=== PATIENT | female | born 1980 | race Caucasian/White ===

== ENCOUNTER 2018-02-06 11:17 | Emergency (ER) | payer SELFPAY ==
[2018-02-06] MEDS ORDERED: cefTRIAXone (Rocephin) 250 mg Inj IM ONE (12:43)
--- NOTE | 2018-02-06 12:48 | ED PDOC ---
HPI: Female Pain Time Seen by Provider: 02/06/18 12:15 Chief Complaint (Nursing): Female Genitourinary Chief Complaint (Provider): Dysuria, Concern for STD History Per: Patient History/Exam Limitations: no limitations Onset/Duration Of Symptoms: Days (x2 weeks) Current Symptoms Are (Timing): Still Present Associated Symptoms: Urinary Symptoms. denies: Fever, Chills, Nausea, Vomiting, Diarrhea, Back Pain Alleviating Factors: None Additional Complaint(s): Patient is a 37 year old female with no past medical history who presents for evaluation of dysuria, yellow vaginal discharge, and urinary frequency x2 weeks. Patient reports she is concerned for both a UTI and possible STDs as she is sexually active with 3 male partners and does not usually use protection. Patient has a history of UTI and trichomoniasis infections. Patient took no medications for her symptoms [employer]. Denies: fever/chills, N/V/D, cough/SOB, abdominal pain, vaginal bleeding, chest pain, hematuria. PMD: in [place], patient is visiting [place] until 03/2018 Past Medical History Reviewed: Historical Data, Nursing Documentation, Vital Signs - Medical History PMH: No Chronic Diseases - Surgical History Surgical History: - Family History Family History: States: Unknown Family Hx - Social History Current smoker - smoking cessation education provided: Yes (4 cigs a day) Alcohol: Social Drugs: Cannabis - Home Medications Home Medications: Ambulatory Orders Medication Instructions Recorded Nitrofurantoin Macrocrystals 100 mg PO BID #14 cap 02/06/18 [Macrobid] Phenazopyridine HCl [Pyridium] 200 mg PO BID PRN #6 tablet 02/06/18 - Allergies Allergies/Adverse Reactions: Allergies Allergy/AdvReac Type Severity Reaction Status Date / Time No Known Allergies Allergy Verified 02/06/18 11:40 Review of Systems ROS Statement: Except As Marked, All Systems Reviewed And Found Negative Constitutional: Negative for: Fever Cardiovascular: Negative for: Chest Pain Respiratory: Negative for: Cough Gastrointestinal: Negative for: Nausea, Vomiting, Abdominal Pain, Diarrhea Genitourinary Female: Positive for: Dysuria, Frequency, Vaginal Discharge. Negative for: Incontinence, Hematuria, Vaginal Bleeding, Pelvic Pain Physical Exam - Reviewed Nursing Documentation Reviewed: Yes Vital Signs Reviewed: Yes - Physical Exam Appears: Positive for: Well, Non-toxic, No Acute Distress (Resting comfortably, on cell phone.) Head Exam: Positive for: ATRAUMATIC, NORMOCEPHALIC Skin: Positive for: Normal Color, Warm Eye Exam: Positive for: Normal appearance ENT: Positive for: Other (Mucus membranes moist. Airway patent, (-) stridor. ) Neck: Positive for: Painless ROM, Supple Cardiovascular/Chest: Positive for: Regular Rate, Rhythm Respiratory: Positive for: Normal Breath Sounds, Other (Lungs clear to auscultation bilaterally, respirations even and nonlabored.) Gastrointestinal/Abdominal: Positive for: Soft. Negative for: Tenderness, Distended, Guarding Back: Negative for: L CVA Tenderness, R CVA Tenderness, Vertebral Tenderness Extremity: Positive for: Normal ROM. Negative for: Deformity Neurologic/Psych: Positive for: Alert, Oriented (x3), Gait (steady in ED). Negative for: Aphasia, Facial Droop - Laboratory Results Urine POC: Negative Medical Decision Making Medical Decision Makin Initial Impression: Dysuria, Frequency, Rule Out UTI; possible exposure to STD Plan: -U/A -U/C -Upreg -Chlamydia/Gonorrhea -Rocephin 250mg IM -Azithromycin 1000mg PO -Pyridium 200mg PO -Re-evaluation 1500 U/A (+) UTI. Macrobid PO ordered. 1520 On re-evaluation, patient reports improvement of symptoms. On exam, patient remains AAOx3, in no acute distress. Vitals stable. Lab/Diagnostic results d/w the patient in great detail. Diagnosis of UTI, STD exposure d/w the patient. Based on history, exam and diagnostic results, plan will be for outpatient follow up. Patient instructed to follow-up with pmd / referral provided / the clinic in 1- 2 days without fail. Advised to take medication as prescribed. Return to the emergency room at any time for any new or worsening symptoms. Patient states she fully agrees with and understands discharge instructions. States that she agrees with the plan and disposition. Verbalized and repeated discharge instructions and plan. I have given the patient opportunity to ask any additio nal questions. Disposition - Clinical Impression Clinical Impression: UTI (urinary tract infection), STD exposure, Dysuria - Patient ED Disposition Is Patient to be Admitted: No Counseled Patient/Family Regarding: Studies Performed, Diagnosis, Need For Followup, Rx Given - Disposition [facility] Disposition: Routine/Home Disposition Time: 15:20 Condition: STABLE Additional Instructions: PLEASE REFRAIN FROM SEXUAL ACTIVITY 2 WEEKS. FOLLOW UP AT [facility] FOR FURTHER EVALUATION. The emergency medical care you received today was directed at your acute symptoms. If you were prescribed any medication, please fill it and take as directed. It may take several days for your symptoms to resolve. Return to the Emergency Department if your symptoms worsen, do not improve, or if you have any other problems. Please contact your doctor in 2 days for re-evaluation and follow up / or call one of the physicians/clinics you have been referred to that are listed on the Patient Visit Information form that is included in your discharge packet. Bring any paperwork you were given at discharge with you along with any medications you are taking to your follow up visit. Our treatment cannot replace ongoing medical care by a primary care provider (PCP) outside of the emergency department. Prescriptions: Nitrofurantoin Macrocrystals [Macrobid] 100 mg PO BID #14 cap Phenazopyridine HCl [Pyridium] 200 mg PO BID PRN #6 tablet PRN Reason: urinary symptoms Instructions: Urinary Tract Infections in Adults, Urethritis, Chlamydia and Gonorrhea, Dysuria, Adult (DC), Sexually-Transmitted Diseases, STD Prevention Forms: [employer] ([place]) Print Language: GREENLANDIC - POA Present On Arrival: None Results - Lab Results Lab Results: 02/06/18 13:20 Urine Color Yellow Urine Clarity Slighty-cloudy Urine pH 7.0 Ur Specific Ren[place] 1.020 Urine Protein Negative Urine Glucose (UA) Neg Urine Ketones Negative Urine Blood Negative Urine Nitrate Positive H Urine Bilirubin Negative Urine Urobilinogen 0.2-1.0 Ur Leukocyte Esterase Mod Urine RBC (Auto) 1 Urine Microscopic WBC 2 Ur Squamous Epith Cells 5
[2018-02-06 12:54] VITALS: RESP 16
[2018-02-06] MEDS ORDERED: cefTRIAXone (Rocephin) 250 mg Inj ONE (13:26)
[2018-02-06] MEDS ORDERED: Sterile Water 10 ML IV ONE (13:26)
[2018-02-06 14:46] LABS: SQUAMOUS EPITHIAL 5 /hpf (0-5); URINE BILIRUBIN NEGATIVE (NEGATIVE); URINE BLOOD NEGATIVE (NEGATIVE); URINE CLARITY SLIGHTY-CLOUDY (Clear); URINE COLOR YELLOW (YELLOW); URINE GLUCOSE (UA) NEG (Normal); URINE LEUKOCYTE ESTERASE MOD Leu/uL (Negative); URINE PROTEIN NEGATIVE (NEGATIVE); URINE UROBILINOGEN 0.2-1.0 mg/dL (0.2-1.0)
[2018-02-06 15:40] VITALS: BP 123/81; PULSE 76; TEMP 98.1; O2SAT 100
== END 2018-02-06 15:40 | disposition home or self-care (01) ==
LOC: H.ER 11:17
DX: N39.0 Urinary tract infection, site not specified (principal); Z20.2 Contact with and (suspected) exposure to infections with a predominantly sexual mode of transmission; R30.0 Dysuria
CPT/HCPCS: 81003; 81025; 87086; 87181; 87491; 87591; 96372; 99283; J0696